=== PATIENT | female | born 1995 | race Caucasian/White ===

== ENCOUNTER 2020-04-24 10:51 | Emergency (ER) | payer OTHER ==
[~2020-04-24] VITALS: Ht 162.6 cm; Wt 81.8 kg
[2020-04-24 11:05] VITALS: BP 127/93; TEMP 98.6
[2020-04-24] MEDS ORDERED: PROZAC 20MG20 MG PO (11:09)
[2020-04-24 12:07] LABS: TRICYCLIC ANTIDEPRESS URINE NEGATIVE
[2020-04-24 12:40] VITALS: PULSE 90
== END 2020-04-24 12:38 | disposition home or self-care (01) ==
LOC: COL.ER 10:51
PROVIDERS: Physician Assistant
DX: F13.20 Sedative, hypnotic or anxiolytic dependence, uncomplicated (principal); S50.311A Abrasion of right elbow, initial encounter; F17.210 Nicotine dependence, cigarettes, uncomplicated; R45.4 Irritability and anger; W19.XXXA Unspecified fall, initial encounter

== ENCOUNTER → 2020-12-19 | Emergency (ER) | payer OTHER ==
[~2020-12-19] VITALS: Ht 162.6 cm; Wt 84.1 kg
[~2020-12-19] MED LIST: ILOTYCIN5 MG/GM OP; PROZAC 20MG20 MG PO
[2020-12-19 08:17] VITALS: TEMP 97.3
[2020-12-19 08:40] VITALS: BP 118/86; PULSE 86
== END ==
LOC: COL.ER 08:10
DX: H15.001 Unspecified scleritis, right eye (principal); F17.210 Nicotine dependence, cigarettes, uncomplicated

== ENCOUNTER 2022-04-28 18:15 | Emergency (ER) | payer OTHER ==
[~2022-04-28] VITALS: Ht 162.6 cm; Wt 90.9 kg
[2022-04-28 18:29] VITALS: TEMP 98.3
[2022-04-28 19:05] LABS: BASO # 0.1 K/mm3 (0.0-0.2); BASO % 0.7 % (0.0-2.0); EOS # 0.1 K/mm3 (0.0-0.7); EOS % 1.6 % (0.0-4.0); GRAN % 57.1 % (42.2-75.2); HEMATOCRIT 45.6 % (37.0-47.0); HEMOGLOBIN 15.2 g/dl (12.5-16.0); LYMPH # 2.1 K/mm3 (1.2-3.4); LYMPH % 29.9 % (20.0-51.0); MEAN CELL VOLUME 94 fl (80.0-100.0); MEAN CORPUSCULAR HEMOGLOBIN 31 pg (27-31); MEAN CORPUSCULAR HGB CONC 33 g/dl (33.0-37.0); MEAN PLATELET VOLUME 11.4 fl (7.4-10.4); MONO # 0.7 K/mm3 (0.1-0.6); MONO % 10.6 % (1.7-9.3); PLATELET COUNT 277 K/mm3 (130-400); RED BLOOD COUNT 4.85 M/mm3 (4.10-5.30); REDCELL DISTRIBUTION WIDTH-CV 11.8 % (11.5-14.5)
[2022-04-28 19:13] LABS: COLLECTION METHOD CLEAN CATCH
[2022-04-28 19:33] LABS: BILIRUBIN,TOTAL 0.6 mg/dL (0.2-1.2); CALCIUM 9.9 mg/dL (8.4-10.2); CREATININE, serum 1.01 mg/dL (0.57-1.11); POTASSIUM 3.8 mmol/L (3.5-4.5); TOTAL PROTEIN 7.5 gm/dL (6.2-8.1)
[2022-04-28 19:38] LABS: MUCOUS Present (NOT PRESENT); SQUAMOUS EPITHELIAL 20-50 /hpf (0-10); URINE BACTERIA None Seen /hpf (NONE SEEN); URINE RBC 0-2 /hpf (0-2)
[2022-04-28 19:39] LABS: URINE APPEARANCE Clear (CLEAR/HAZY); URINE COLOR Yellow (YELLOW)
[2022-04-28 19:40] LABS: PH 5.5 (5.0-8.5); URINE BLOOD Negative (NEGATIVE); URINE GLUCOSE Negative (NEGATIVE); URINE KETONE Negative (NEGATIVE); URINE NITRATE Negative (NEGATIVE); URINE PROTEIN(semi-quant) Negative (NEGATIVE); URINE UROBILINOGEN 0.2 E.U/dL (0.2-1.0)
[2022-04-28] MEDS ORDERED: NORCO 325 MG-51 TAB PO (21:50)
[2022-04-28 22:00] VITALS: BP 128/82; PULSE 75
== END 2022-04-28 22:00 | disposition home or self-care (01) ==
LOC: COL.ER 18:15
PROVIDERS: Family Medicine
DX: S16.1XXA Strain of muscle, fascia and tendon at neck level, initial encounter (principal); T14.8XXA Other injury of unspecified body region, initial encounter; V91.23XA Fall due to collision between other powered watercraft and other watercraft or other object, initial encounter; Y93.17 Activity, water skiing and wake boarding
CPT/HCPCS: J2405; J3010; J7030; Q9967